=== PATIENT | female | born 1945 | race Caucasian/White ===

== ENCOUNTER → 2018-09-27 | Day surgery (SDC) | payer OTHER ==
[~2018-09-27] MED LIST: ACIPHEX20 MG PO; AMIODARONE HCL200 MG PO; ASPIR 8181 MG PO; ASPIRIN325 MG PO; ATENOLOL50 MG PO; BENTYL20 MG PO; BIOTIN2500 MCG PO; CALTRATE 600 W1 EACH PO; CITRUCEL500 MG PO; COLESTIPOL HCL1 GM PO; FENTANYL CITRATE/PF 100MCG/2 ML INJ ONE; FERROUS SULFAT325 MG PO; HYOSCYAMINE SULFATE 0.5 MG/ML INJ ONE; LIDOCAINE HCL 2% LOCAL INJ 5 ML SDV VIAL INJ ONE; LOVASTATIN20 MG PO; METOLAZONE5 MG PO; MIDAZOLAM HCL 2 MG/2 ML VIAL ONE; MOVE FREE ULTRA PO; MULTI-VITAMIN1 EACH PO; PROPOFOL IV EMULSION 10 MG/ML 50 ML VIAL ONE; RANITIDINE HCL300 M1 PO; SPIRONOLACTONE25 MG PO; TRIAMTERENE PO; VITAMIN D35000 UNI1 PO; XANAX0.25 MG PO; ZOLOFT50 MG PO
--- OUTSIDE RECORDS SUMMARY | 2018-09-27 06:58 | XMS REPORT | Clinical Summary ---
Author Author [facility] Organization [facility] Address Unknown Phone Unavailable Care Team Providers Care Unemployment Specialist Name Role Phone Marty Seals MD PCP Allergies Comments Active Allergy Reactions Severity Noted Date Sulfa (Sulfonamide Other (See Antibiotics) Comments) Medications End Date Status Medication Sig Dispensed Refills Start Date Active dicyclomine (BENTYL) 20 0 mg tablet 7 Active ipratropium (ATROVENT) USE 1 TO 2 11 0.06 % nasal spray SPRAYS IEN 7 TWO TO TID WHEN NECESSARY Active omeprazole (PriLOSEC) 40 TK 1 C PO D 3 MG capsule 30 MIN B MANAS 7 Active ranitidine (ZANTAC) 300 TK 1 T PO D 3 MG tablet HS 7 Active triamterene-hydrochloroth Take 1 tablet 0 iazid (MAXZIDE-25) by mouth. QD 37.5-25 mg per tablet PRN Active atenolol (TENORMIN) 50 MG Take 50 mg by 0 tablet mouth. BID as Directed Active lovastatin (MEVACOR) 20 Take 20 mg by 0 MG tablet mouth. QD pm Active MULTIVITAMIN ORAL Take by 0 mouth. Active ferrous sulfate 325 (65 Take 325 mg 0 FE) MG tablet by mouth daily with breakfast. Active aspirin (ECOTRIN) 81 MG Take 81 mg by 0 enteric coated tablet mouth daily. Active CALCIUM CITRATE/VITAMIN Take 600 mg 0 D3 (CALCITRATE-VITAMIN D by mouth. ORAL) Active cholecalciferol, vitamin Take by 0 D3, (VITAMIN D3) 5,000 mouth. unit tablet Active biotin 5 mg capsule Take 5,000 mg 0 by mouth daily. Active CARTILAGE/COLLAGEN Take by 0 II/HYALURON (MOVE FREE mouth. ULTRA ORAL) Active METHYLCELLULOSE (CITRUCEL Take by 0 ORAL) mouth. 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 Last Filed Vital Signs Not on file Plan of Treatment Health Maintenance Due Date Last Done Comments BREAST CANCER SCREENING 1996 COLON CANCER SCREENING 1996 SHINGLES VACCINES (#1) 1996 65+ PNEUMOCOCCAL VACCINE 10/14/2011 (1 of 2 - PCV13) PNEUMOCOCCAL 10/14/2011 POLYSACCHARIDE VACCINE AGE 65 AND OVER INFLUENZA VACCINE 02/19/2018 Results Not on fileafter 09/26/2017 Insurance Payer Benefit Subscriber ID Type Phone Address Plan / Group HUMANA MEDICARE HUMANA xxxxxxxxx PPO MEDICARE PPO/PFFS/E [facility] Advance Directives Patient has advance care planning documents on file. For more information, maksim ruiz contact: Jairon Cohen [address] [place] [address]
[2018-09-27 11:25] VITALS: BP 125/82
--- NOTE | 2018-09-27 22:52 | Operative Report ---
DATE OF PROCEDURE: 09/27/2018 SURGEON: Toni Griffiths MD PROCEDURES: EGD with biopsies and colonoscopy with polypectomy. INDICATIONS FOR EGD: Nausea, bloating, and history of Del Cid esophagus. INDICATIONS FOR COLONOSCOPY: Surveillance colonoscopy, personal history of colon polyps. MEDICATION: The patient was done under MAC, please see anesthesiologist's note. PROCEDURE IN DETAIL: With the patient in left lateral decubitus position, the flexible fiberoptic Olympus gastroscope was introduced into the esophagus under direct visualization without any difficulty. There was some patchy erythema noted in distal esophagus. Minute tongues of velvety red mucosa were noted to extend proximally from the GE junction and biopsies were obtained. The scope was then advanced with ease into the stomach. Mucosa overlying the antrum and the body revealed some patchy erythema, low grade to moderate edema, and biopsies were obtained and sent to stain for H pylori. Pylorus was of normal contour and shape. It was intubated with ease and the scope was advanced all the way to the second portion of the duodenum. The scope was then withdrawn slowly. Mucosa overlying the proximal second portion and duodenal bulb grossly appeared to be within normal limits. Biopsies were obtained to rule out sprue. The scope was then withdrawn back into the stomach and retroflexed, and mucosa overlying the fundus and cardia appeared to be within normal limits. The scope was then straightened out and was subsequently withdrawn. The patient tolerated the procedure well. IMPRESSION: 1. Mild distal esophagitis. 2. Del Cid esophagus, biopsied. 3. Gastritis, biopsied. Biopsies sent to stain for H pylori. 4. Rule out sprue. PLAN: Follow up histology. Increase AcipHex to 20 mg one p.o. a.c. b.i.d. The patient was then turned around. After adequate lubrication of the anal canal, flexible fiberoptic Olympus colonoscope was inserted into the rectum with ease and advanced all the way to the cecum. It was then withdrawn slowly. Mucosa overlying the cecum and ascending colon appeared to be within normal limits. One polyp was snared from the transverse colon. One polyp was snared from the descending colon. There was a nodular fold noted in the sigmoid colon that was hot biopsied. Five polyps were hot biopsied from the sigmoid colon and four polyps were hot biopsied from the rectum. The scope was then retroflexed into the distal rectum and small internal hemorrhoids were noted, none of which was actively bleeding. The scope was then straightened out, it was subsequently withdrawn. The patient tolerated the procedure well. IMPRESSION: 1. Transverse colon polyp, snared. 2. Descending colon polyp, snared. 3. Nodular fold of sigmoid colon, hot biopsied. 4. Sigmoid colon polyps x5, hot biopsied. 5. Rectal polyps x4, hot biopsied. 6. Internal hemorrhoids, none actively bleeding. PLAN: Follow up histology. Initiate high-fiber, low-fat diet. Initiate high-fiber supplement. The patient might benefit from a followup colonoscopy in 3 years. A total of 12 polyps were removed. Toni Griffiths MD [facility] /[id number] cc: Marty Seals
== END | disposition home or self-care (01) ==
LOC: OR 06:55
PROVIDERS: ATTEND Internal Medicine Gastroenterology
DX: Z12.11 Encounter for screening for malignant neoplasm of colon (principal); Z86.010 Personal history of colon polyps; Z80.0 Family history of malignant neoplasm of digestive organs; K52.831 Collagenous colitis; K92.1 Melena; K29.50 Unspecified chronic gastritis without bleeding; K62.89 Other specified diseases of anus and rectum; K21.9 Gastro-esophageal reflux disease without esophagitis; Z68.33 Body mass index [BMI] 33.0-33.9, adult; Z88.2 Allergy status to sulfonamides; I49.9 Cardiac arrhythmia, unspecified; J38.01 Paralysis of vocal cords and larynx, unilateral; D64.9 Anemia, unspecified; K22.70 Barrett's esophagus without dysplasia; K20.9 Esophagitis, unspecified; K63.5 Polyp of colon; K62.1 Rectal polyp; K64.8 Other hemorrhoids; D12.4 Benign neoplasm of descending colon; D12.3 Benign neoplasm of transverse colon
CPT/HCPCS: 43239; 45384; 45385; J1980; J2001; J2250; J2704

== ENCOUNTER → 2020-01-28 | Outpatient (CLI) | payer MEDICARE ==
[~2020-01-28] MED LIST changes: +DIATRIZOATE MEGL/DIATRIZOA SOD 30 ML BTL PO ONE; -FENTANYL CITRATE/PF 100MCG/2 ML INJ ONE; -HYOSCYAMINE SULFATE 0.5 MG/ML INJ ONE; +IOPAMIDOL 370 MG/ML 200 ML INFUS..BTL INJ ONE; -LIDOCAINE HCL 2% LOCAL INJ 5 ML SDV VIAL INJ ONE; -MIDAZOLAM HCL 2 MG/2 ML VIAL ONE; -PROPOFOL IV EMULSION 10 MG/ML 50 ML VIAL ONE; +SODIUM CHLORIDE 0.9% 500ML 500 ML ONE; +SODIUM CHLORIDE 0.9% 50ML 50 ML ONE
[2020-01-28 12:08] LABS: CREATININE, SERUM 1.33 mg/dL (0.57-1.11)
--- NOTE | 2020-01-28 13:47 | Diagnostic Imaging Report ---
CT of the abdomen and pelvis. Comparison: 12/24/2014 Clinical History: Abdominal pain. Rectal bleeding. Diarrhea. Technique: Helical CT scan of the abdomen and pelvis was performed. Intravenous contrast administration was utilized. Oral contrast administration was not utilized. Coronal and sagittal reconstructions were generated from the raw data. Multiple images were submitted for interpretation. This exam was performed according to our departmental dose-optimization program which includes automated exposure control, adjustment of the mA and/or kV according to patient size Discussion: Inferior chest: Cardiomegaly. Otherwise unremarkable. Liver: Unremarkable Spleen: Unremarkable Pancreas: Unremarkable Biliary tree and gallbladder: Gallbladder not visualized. Likely post cholecystectomy. Otherwise unremarkable Adrenal glands: Unremarkable Kidneys and ureters: Unremarkable Vasculature: Unremarkable Lymph nodes: No lymphadenopathy Bowel: Unremarkable Pelvis: Urinary bladder is unremarkable. Internal genitalia unremarkable. Pelvic wall unremarkable. Peritoneum: Unremarkable Perineal compartments: unremarkable. Fluid: No free fluid or air Bones: Unremarkable Body wall: Unremarkable Impression: No significant abnormality on this exam. Signed by: Héctor Albright MD on 01/28/2020 1:44 PM
== END ==
LOC: CT 11:14
PROVIDERS: ATTEND Internal Medicine Gastroenterology
DX: R10.9 Unspecified abdominal pain (principal)
CPT/HCPCS: 36415; 74177; 82565; 84520; 96360; J7040; Q9967

== ENCOUNTER → 2022-06-02 | Day surgery (SDC) | payer MEDICARE ==
[~2022-06-02] MED LIST changes: +AMLODIPINE BESY10 MG PO; +BUDESONIDE EC3 MG PO; +CRESTOR10 MG PO; -DIATRIZOATE MEGL/DIATRIZOA SOD 30 ML BTL PO ONE; +EXEMESTANE25 MG PO; +GLUCAGON FOR INJ 1 MG VIAL ONE; +HYOSCYAMINE SULFATE 0.5 MG/ML INJ ONE; -IOPAMIDOL 370 MG/ML 200 ML INFUS..BTL INJ ONE; +LIDOCAINE HCL 2% LOCAL INJ 5 ML SDV VIAL INJ ONE; +PROPOFOL IV EMULSION 50 ML IV ONE; -SODIUM CHLORIDE 0.9% 500ML 500 ML ONE; -SODIUM CHLORIDE 0.9% 50ML 50 ML ONE
[2022-06-02 08:14] LABS: BASOPHILS % 0.2 % (0.0-1.0); EOSINOPHILS % 0.3 % (0.0-6.0); HEMATOCRIT 40.6 % (34.2-44.1); HEMOGLOBIN 12.9 g/dL (12.0-16.0); LYMPHOCYTES # (AUTO) 2.3 (1.0-3.2); LYMPHOCYTES % 17.3 % (18.0-39.1); MEAN CORPUSCULAR HEMOGLOBIN 29.9 pg (28-32); MEAN CORPUSCULAR HGB CONC 31.8 g/dL (31-35); MONOCYTES # (AUTO) 1.1 (0.2-0.8); MONOCYTES % 8.2 % (4.4-11.3); NEUTROPHILS # (AUTO) 9.9 (2.1-6.9); NEUTROPHILS % 73.5 % (38.7-80.0); PLATELET COUNT 202 x10e3/uL (140-360); RED BLOOD COUNT 4.32 x10e6/uL (3.6-5.1); RED CELL DISTRIBUTION WIDTH 14.4 % (11.7-14.4)
[2022-06-02 10:05] VITALS: BP 126/65
== END | disposition home or self-care (01) ==
LOC: OR 06:51
PROVIDERS: ATTEND Internal Medicine Gastroenterology
DX: D12.2 Benign neoplasm of ascending colon (principal); D12.4 Benign neoplasm of descending colon; D12.5 Benign neoplasm of sigmoid colon; K63.5 Polyp of colon; K51.90 Ulcerative colitis, unspecified, without complications; D64.9 Anemia, unspecified; I48.91 Unspecified atrial fibrillation; I10 Essential (primary) hypertension; Z01.812 Encounter for preprocedural laboratory examination; Z86.010 Personal history of colon polyps; Z88.2 Allergy status to sulfonamides; K52.831 Collagenous colitis; Z68.32 Body mass index [BMI] 32.0-32.9, adult
CPT/HCPCS: 36415; 45380; 45385; 85025; J1610; J1980; J2001; J2704; 45378